=== PATIENT | female | born 1975 | race Caucasian/White ===

== ENCOUNTER 2018-11-20 22:23 | Emergency (ER) | payer OTHER ==
[~2018-11-20] VITALS: Ht 152.4 cm; Wt 95.3 kg
[2018-11-20 23:15] LABS: ABSOLUTE NEUTROPHILS 8.9 thou/uL (1.4-8.2); BASOPHILS 0.3 % (0.0-2.0); EOSINOPHILS 1.5 % (0.0-3.0); HEMATOCRIT 42.3 % (37.0-47.0); HEMOGLOBIN 14.2 gm/dL (12.0-15.0); MCH 27.5 pg (26.0-34.0); MCHC 33.5 g/dL (28.0-37.0); MONOCYTES 5.7 % (1.0-8.0); PLATELET COUNT 232 thou/uL (150-400); POLYS 79.5 % (36.0-66.0); RBC 5.16 mil/uL (4.20-5.00); RDW 14.6 % (10.5-14.5); WBC 11.2 thou/uL (4.0-11.0)
[2018-11-20 23:34] LABS: ANION GAP 10 mmol/L (7-16); BUN 10 mg/dL (7-18); CALCIUM 9.1 mg/dL (8.5-10.1); CHLORIDE 100 mmol/L (98-107); CO2 28 mmol/L (21-32); CREATININE 0.8 mg/dL (0.6-1.0); GLUCOSE 200 mg/dL (74-106); POTASSIUM 3.8 mmol/L (3.5-5.1); SODIUM 138 mmol/L (136-145)
[2018-11-20 23:43] LABS: TROPONIN-I <0.06 ng/mL (<0.06)
[2018-11-21] MEDS ORDERED: MECLIZINE HCL12.5 MG PO (01:11)
[2018-11-21 01:13] VITALS: BP 146/100
--- NOTE | 2018-11-21 10:07 | EKG ---
[place] [address] [employer] [address] [address] ELECTROCARDIOGRAM REPORT Name: SHANELL PIPER Room #: TASHI Blair#: [id number] Admission: 11/20/18 Attend Phys: Discharge: 11/21/18 Date of : 77 Report #: [id number] THIS REPORT FOR: //name// [facility] ED Test Date: 2018-11-20 Test Time: 22:47:44 Pat Name: SHANELL PIPER Department: Room: Gender: F Sales Floor Associate: : [id number] Requested By: Pippa Adams Order Number: [id number] MD: Marcos Peterson Measurements Intervals [place] Rate: 116 P: 50 UT: 146 QRS: 12 QRSD: 86 T: 8 QT: 342 QTc: 476 Interpretive Statements Sinus tachycardia Probable left atrial enlargement No previous ECG available for comparison Electronically Signed On 11-21-2018 10:06:55 HEMODIALYSIS TECHNICIAN by Marcos Peterson [email or web address] <ELECTRONICALLY SIGNED> By: Marcos Peterson MD 11/21/18 [id number] Marcos Peterson MD /KIEL
== END 2018-11-21 01:17 | disposition home or self-care (01) ==
LOC: ER 22:23
PROVIDERS: Student in an Organized Health Care Education/Training Program
DX: H81.12 Benign paroxysmal vertigo, left ear (principal); F17.210 Nicotine dependence, cigarettes, uncomplicated